=== PATIENT | male | born 1975 | race Caucasian/White ===

== ENCOUNTER 2020-08-18 14:44 | Emergency (ER) | payer OTHER ==
[2020-08-18 14:55] VITALS: TEMP 98.4; BMI 27.3
[2020-08-18 17:09] LABS: BASO % 0.4 % (0-2.0); EOS % 0.6 % (0-4.5); HEMATOCRIT 37.3 % (35.4-49); HEMOGLOBIN 12.1 GM/dL (11.7-16.9); LYMPH % 14.6 % (8-40); MCH 21.3 pg (25.7-33.7); MCHC 32.5 g/dl (32.0-35.9); MEAN CELL VOLUME 65.7 fl (80-96); MEAN PLT VOLUME 8.4 fl (7.5-11.1); NEUT % 78.4 % (42.8-82.8); PLATELET COUNT 222 10^3/uL (134-434); RBC 5.67 M/mm3 (4.00-5.60); RDW 18.6 % (11.9-15.9); WHITE BLOOD COUNT 7.4 K/mm3 (4.0-10.0)
[2020-08-18 17:35] LABS: ALBUMIN 3.6 g/dl (3.4-5.0); BLOOD UREA NITROGEN 17.9 mg/dL (7-18); CALCIUM 8.1 mg/dL (8.5-10.1)
[2020-08-18 17:38] LABS: CREATININE 0.8 mg/dL (0.55-1.3)
[2020-08-18 17:40] LABS: BILIRUBIN,TOTAL 0.5 mg/dL (0.2-1); TOT PROT 6.7 g/dl (6.4-8.2)
[2020-08-18 18:05] LABS: ANISOCYTOSIS 2+; MACROCYTOSIS 0; PLATELET ESTIMATE NORMAL; TEAR DROP CELLS 1+
[2020-08-18] MEDS ORDERED: IBUPROFEN 400 MG TABLET (FP) PO ONE ×2 (18:28→18:36)
[2020-08-18] MEDS ORDERED: DIVALPROEX NA *ER* EXTEND REL 500 MG TABLET.SA (FP) PO ONE (18:28)
[2020-08-18] MEDS ORDERED: DIVALPROEX SODIUM 500 MG TABLET E.C. ONE (18:35)
[2020-08-18 18:50] VITALS: BP 117/86; PULSE 87
== END 2020-08-18 18:50 | disposition home or self-care (01) ==
LOC: JER 14:44
DX: R56.9 Unspecified convulsions (principal)
CPT/HCPCS: 36415; 80053; 80164; 85025; 93005; 93010; 99284-25